=== PATIENT | male | born 1975 ===

== ENCOUNTER 2018-04-25 11:31 | Emergency (ER) | payer BC ==
[2018-04-25 11:39] VITALS: RESP 18; O2SAT 99
[2018-04-25] MEDS ORDERED: Sodium Chloride 0.9% 1,000 ML IV ONE (12:32)
[2018-04-25] MEDS ORDERED: Sodium Chloride 0.9% 1,000 ML ONE (13:11)
[2018-04-25 13:33] LABS: BASO # 0.1 K/uL (0.0-0.2); BASO % 0.8 % (0.0-2.0); EOS # 0.1 K/uL (0.0-0.7); EOS % 1.3 % (0.0-4.0); HEMOGLOBIN 16.1 g/dL (12.0-18.0); LYMPH # 1.6 K/uL (1.0-4.3); LYMPH % 18.8 % (20.0-40.0); MEAN CELL VOLUME 82.4 fL (80.0-94.0); MEAN CORPUSCULAR HGB CONC 35.2 g/dL (33.0-37.0); MEAN PLATELET VOLUME 10.9 fL (7.2-11.7); MONO # 0.4 K/uL (0.0-0.8); MONO % 5.2 % (0.0-10.0); NEUT # 6.2 K/uL (1.8-7.0); NEUT % 73.9 % (50.0-75.0); NRBC % 0.2 % (0.0-2.0); RBC 5.56 Mil/uL (4.40-5.90); WHITE BLOOD COUNT 8.3 K/uL (4.8-10.8)
[2018-04-25 13:41] LABS: PROTHROMBIN TIME 10.9 SECONDS (9.7-12.2)
[2018-04-25 13:59] LABS: CALCIUM 10.2 mg/dl (8.6-10.4); GFR AFRICAN-AMERICAN > 60; GFR NON-AFRICAN AMERICAN > 60
[2018-04-25 14:08] LABS: ALB/GLOB RATIO 1.5 (1.0-2.1); ALBUMIN 5.1 g/dL (3.5-5.0); ALT/SGPT 98 U/L (21-72); AST/SGOT 66 U/L (17-59); BLOOD UREA NITROGEN 12 mg/dL (9-20)
--- NOTE | 2018-04-25 14:18 | C.PDOC ---
History Of Present Illness 42-year-old male, PMHx includes Hypertension, presents to the emergency department with complaints of dizziness, described as weakness, associated with nausea developed since today 6 AM. Pt reports, took a dose of Amlodipine for the first time yesterday at 9 AM " also was walking a lot outside yesterday in heat". Pt reports, sx of " dizziness" is intermittent, nos. Otherwise, pt denies fever, chills, recent illness, headache, vertigo, visual changes, focal deficits, neck pain, chest pain, SOB, dyspnea, diaphoresis, palpitation, abd. pain, V/D, back pain, UTI sx. Ambulate to Ed for evlauation, not in any apparent distress. Time Seen by Provider: 04/25/18 12:06 Chief Complaint (Nursing): Medical Clearance History Per: Patient History/Exam Limitations: no limitations Current Symptoms Are (Timing): Still Present Severity: Moderate Past Medical History Reviewed: Historical Data, Nursing Documentation, Vital Signs Vital Signs: Last Vital Signs Temp 98.3 F 04/25/18 15:00 Pulse 75 04/25/18 15:00 Resp 18 04/25/18 15:00 BP 148/90 04/25/18 11:36 Pulse Ox 99 04/25/18 15:00 - Medical History PMH: HTN Family History: States: No Known Family Hx - Social History Hx Alcohol Use: Yes Hx Substance Use: No Review Of Systems Constitutional: Positive for: Weakness. Negative for: Fever Cardiovascular: Negative for: Chest Pain, Palpitations Respiratory: Negative for: Shortness of Breath Gastrointestinal: Positive for: Nausea. Negative for: Vomiting, Hematemesis Musculoskeletal: Negative for: Back Pain Skin: Negative for: Rash Neurological: Positive for: Dizziness. Negative for: Headache Physical Exam - Physical Exam Appears: Well, Non-toxic, No Acute Distress Skin: Normal Color, Warm, Dry, No Rash Head: Normacephalic Eye(s): bilateral: PERRL Nose: No Flaring Oral Mucosa: Moist Tongue: Normal Appearing Lips: Normal Appearing Throat: No Erythema, No Drooling Neck: Normal ROM, Trachea Midline, Supple Cardiovascular: Rhythm Regular, No Friction Rub, No Murmur, No JVD, Other ((-) carotid bruits B/L) Respiratory: No Decreased Breath Sounds, No Accessory Muscle Use, No Stridor, No Wheezing Gastrointestinal/Abdominal: Soft, No Tenderness, No Distention, No Guarding Back: No CVA Tenderness Extremity: Normal ROM, No Pedal Edema, No Deformity, No Swelling Neurological/Psych: Oriented x3, Normal Speech ED Course And Treatment - Laboratory Results Result Diagrams: 04/25/18 13:23 04/25/18 13:23 Lab Interpretation: Normal ECG: Interpreted By Me, Viewed By Me ECG Rhythm: Sinus Rhythm Interpretation Of ECG: SR@78/min, NAD, no acute T wave or ST-T changes O2 Sat by Pulse Oximetry: 99 (RA) Pulse Ox Interpretation: Normal - Radiology CXR: Interpreted by Me, Viewed By Me CXR Interpretation: Yes: No Acute Disease Progress Note: On re-evaluation, pt is afebrile, hemodynamicaly stable. Non- toxic. PuslEOx 100% RA. ENT: No acute findings. neck: Supple, (-) JVD, (-) carotid bruits B/L. Lungs: CTA B/L, BS equal HB/L. CVS: (+)S1S2, reg. Abd: benign. Blood work review and appears normal. EKG, CXR- normal study. case discussed with pt's PMD and discharge with outpt f/u recommend. recommend to discontinue Amlodipine now and change to HCTZ. results review and sicussed with pt. Pt advised and ref. to f/u with PMD in 1-2 days for re-eavl. return if any new hcanges. Disposition Counseled Patient/Family Regarding: Diagnosis, Need For Followup, Rx Given - Disposition Referrals: Kristopher Palmer MD [Staff Provider] - Disposition: HOME/ ROUTINE Disposition Time: 14:17 Condition: STABLE Additional Instructions: STOP AMLODIPINE, change to new medication ( prescribed today) Follow up with PMD in 1 week for further evaluation and treatment as need return to ED if nay worsening or new changes. Prescriptions: Hydrochlorothiazide [Microzide] 12.5 mg PO DAILY #10 cap Instructions: Side Effects From Medicines, Dizziness, Nonvertigo, (DC) Forms: [employer] (Portuguese) - Clinical Impression Clinical Impression: Dizziness, Medication side effect - Scribe Statement The provider has reviewed the documentation as recorded by the Scribe [facility]) All medical record entries made by the Scribe were at my direction and personally dictated by me. I have reviewed the chart and agree that the record accurately reflects my personal performance of the history, physical exam, medical decision making, and the department course for this patient. I have also personally directed, reviewed, and agree with the discharge instructions and disposition.
--- NOTE | 2018-04-25 14:36 | RAD ---
Date of service: 04/25/2018 HISTORY: Cough COMPARISON: No prior. TECHNIQUE: Chest PA and lateral FINDINGS: LUNGS: No active pulmonary disease. PLEURA: No significant pleural effusion identified. No pneumothorax apparent. CARDIOVASCULAR: Normal. OSSEOUS STRUCTURES: No significant abnormalities. VISUALIZED UPPER ABDOMEN: Normal. OTHER FINDINGS: None. IMPRESSION: No active disease.
[2018-04-25 15:01] VITALS: PULSE 75; TEMP 98.3
[2018-04-25 15:09] VITALS: BP 137/95
--- NOTE | 2018-04-26 17:48 | CARD ---
APPROVED REPORT Date of service: 04/25/2018 EKG Measurement Heart [id number] <Conclusion> Normal sinus rhythm Minimal voltage criteria for LVH, may be normal variant Nonspecific T wave abnormality Abnormal ECG
== END 2018-04-25 15:08 | disposition home or self-care (01) ==
LOC: C.ER 11:31
DX: R42 Dizziness and giddiness (principal); T46.1X5A Adverse effect of calcium-channel blockers, initial encounter
CPT/HCPCS: 71046; 80053; 84484; 85025; 85610; 85730; 93005; 96360; 99284; J7030